=== PATIENT | female | born 1950 | race Asian ===

== ENCOUNTER 2019-05-28 01:31 | Emergency (ER) | payer BC, OTHER ==
[~2019-05-28] VITALS: Ht 160 cm; Wt 59.4 kg
[2019-05-28] MEDS ORDERED: ONDANSETRON HCL4 M2 PO (02:14)
[2019-05-28 02:22] LABS: ABSOLUTE NEUTROPHILS 3.4 thou/uL (1.4-8.2); BASOPHILS 1.3 % (0.0-2.0); EOSINOPHILS 6.5 % (0.0-3.0); HEMATOCRIT 40.3 % (37.0-47.0); HEMOGLOBIN 13.4 gm/dL (12.0-15.0); LYMPHOCYTES 24.7 % (24.0-44.0); MCH 29.5 pg (26.0-34.0); MCHC 33.2 g/dL (28.0-37.0); MCV 88.8 fL (80.0-100.0); PLATELET COUNT 168 thou/uL (150-400); POLYS 61.5 % (36.0-66.0); RBC 4.54 mil/uL (4.20-5.00); RDW 13.2 % (10.5-14.5); WBC 5.5 thou/uL (4.0-11.0)
[2019-05-28 02:27] LABS: CALCIUM 9.2 mg/dL (8.5-10.1); CREATININE 0.7 mg/dL (0.6-1.0); POTASSIUM 3.8 mmol/L (3.5-5.1)
[2019-05-28 02:32] LABS: ALBUMIN 4.2 g/dL (3.4-5.0); TOTAL BILIRUBIN 0.2 mg/dL (<0.1-1.0); TOTAL PROTEIN 8.1 g/dL (6.4-8.2)
[2019-05-28 02:34] LABS: TROPONIN-I <0.06 ng/mL (<0.06)
[2019-05-28] MEDS ORDERED: ZOFRAN ODT4 MG PO (04:53)
[2019-05-28 05:00] VITALS: BP 117/65
--- NOTE | 2019-05-28 09:01 | EKG ---
[place] [address] [facility] [place] [address] ELECTROCARDIOGRAM REPORT Name: ISA GALLOWAY Room #: [facility]P [facility] [place]#: [id number] ������������������ Admission: 05/28/19 ������������������ Attend Phys: Discharge: 05/28/19 ������������������ Date of : 54 Report #: [id number] ����������������������������������������������������������������� [id number] THIS REPORT FOR: //name// [facility] ED Test Date: 2019-05-28 Test Time: 01:55:59 Pat Name: ISA GALLOWAY Department: Room: Gender: F [employer] Sales [employer]: VENESSA : 1950 Requested By: Manuel Whatley Order Number: [id number] MD: Phan Weiner Measurements Intervals [place] Rate: 66 P: -37 [place]: 176 QRS: -11 QRSD: 96 T: -36 QT: 406 QTc: 426 Interpretive Statements Sinus rhythm Low voltage, extremity leads No previous ECG available for comparison Electronically Signed On 05-28-2019 9:01:24 CDT by Phan Weiner [email or web address] ��������������������������������������������� <ELECTRONICALLY SIGNED> ���������������������������������������� By: Phan Weiner MD, [facility] ��������������������������������������������� 05/28/19 0901 [id number] Phan Weiner MD, FACC /EPI
== END 2019-05-28 05:01 | disposition home or self-care (01) ==
LOC: ER 01:31
PROVIDERS: Emergency Medicine
DX: R42 Dizziness and giddiness (principal); R11.2 Nausea with vomiting, unspecified; Z90.49 Acquired absence of other specified parts of digestive tract; Z88.1 Allergy status to other antibiotic agents; Z88.8 Allergy status to other drugs, medicaments and biological substances